=== PATIENT | male | born 1985 ===

== ENCOUNTER 2017-05-01 09:08 | Emergency (ER) | payer OTHER ==
[2017-05-01 09:17] VITALS: O2SAT 98
[2017-05-01] MEDS ORDERED: Apap-Butalbital-Caffeine 325-50-40mg Tab PO STA (09:23)
--- NOTE | 2017-05-01 09:25 | C.PDOC ---
History Of Present Illness 32 yo male, no prior hx, presents with haskins x 4 days. pts tates he took advil, with mild relief. pt denies fevers, cough, neck pain, blurry vision. haskins came on gradually. pt states he has haskins in past, and it usually resolves, however this one persisted. pt does not see any pmd. Time Seen by Provider: 05/01/17 09:17 Chief Complaint (Nursing): Headache Past Medical History Reviewed: Historical Data, Nursing Documentation, Vital Signs Vital Signs: Last Vital Signs Temp 98.0 F 05/01/17 11:00 Pulse 96 H 05/01/17 11:00 Resp 18 05/01/17 11:00 BP 148/74 05/01/17 11:00 Pulse Ox 98 05/01/17 11:04 Family History: States: Unknown Family Hx - Social History Hx Alcohol Use: Yes Hx Substance Use: No - Immunization History Hx Tetanus Toxoid Vaccination: No Hx Influenza Vaccination: No Hx Pneumococcal Vaccination: No Review Of Systems Except As Marked, All Systems Reviewed And Found Negative. Neurological: Positive for: Headache Physical Exam - Physical Exam Appears: Well, No Acute Distress, Other (ambulatory steady gait. ) Skin: Normal Color, Warm, Dry Eye(s): bilateral: Normal Inspection, PERRL, EOMI Nose: Normal Throat: Normal Neck: Normal Cardiovascular: Rhythm Regular Respiratory: Normal Breath Sounds Gastrointestinal/Abdominal: Normal Exam Back: Normal Inspection Extremity: Normal ROM Neurological/Psych: Oriented x3, Normal Speech, Normal Cognition, Normal Cranial Nerves, Normal Motor ED Course And Treatment - Laboratory Results Result Diagrams: 05/01/17 10:11 05/01/17 10:11 O2 Sat by Pulse Oximetry: 98 Medical Decision Making Medical Decision Making: well appearing male, no thunderclap features, neuro intact. will treat with fiorcet and reassess. 1007: pt reassesed states symptoms not improving. will order additional imaging labs iv meds and reassess 11:00. Patient reports feeling well and wants to be d/c now. On reassessment, patient is resting comfortably, and is in no acute distress. Patient was instructed to follow up with physician/clinic in 1-2 days for further evaluation. Disposition - Disposition Referrals: [facility] [Outside] [facility] [Outside] Cash Foster MD [Staff Provider] - Disposition: HOME/ ROUTINE Disposition Time: 11:00 Condition: STABLE Additional Instructions: please follow up with specialist. return to er with worsening symptoms or concerns. Prescriptions: Acetaminophen/Butalbital/Caf [Fioricet] 1 tab PO Q8 PRN #20 tab PRN Reason: Headache Instructions: Acute Headache (ED) Forms: [employer] (French) Print Language: SAMMARINESE - Clinical Impression Clinical Impression: Headache
[2017-05-01] MEDS ORDERED: Apap-Butalbital-Caffeine 325-50-40mg Tab ONE (09:34)
[2017-05-01] MEDS ORDERED: DiphenhydrAMINE 50 mg/ml Inj IVP STA (10:04)
[2017-05-01] MEDS ORDERED: DiphenhydrAMINE 50 mg/ml Inj ONE (10:13)
[2017-05-01 10:16] LABS: BASO # 0.1 K/uL (0.0-0.2); BASO % 0.7 % (0.0-2.0); EOS # 0.2 K/uL (0.0-0.7); EOS % 2.2 % (0.0-4.0); HEMATOCRIT 44.8 % (35.0-51.0); LYMPH % 23.8 % (20.0-40.0); MEAN CELL VOLUME 79.4 fL (80.0-94.0); MEAN CORPUSCULAR HEMOGLOBIN 27.8 pg (27.0-31.0); MEAN PLATELET VOLUME 7.6 fL (7.2-11.7); MONO # 0.4 K/uL (0.0-0.8); NRBC % 0.1 % (0.0-2.0); RED CELL DISTRIBUTION WIDTH 14.2 % (11.5-14.5); WHITE BLOOD COUNT 8.2 K/uL (4.8-10.8)
[2017-05-01 10:22] LABS: CHLORIDE 100 mmol/L (98-107); POTASSIUM 4.3 mmol/L (3.6-5.2); SODIUM 137 mmol/L (132-148)
[2017-05-01 10:24] LABS: GFR AFRICAN-AMERICAN > 60
[2017-05-01 10:25] LABS: ALB/GLOB RATIO 1.6 (1.0-2.1); ALKALINE PHOSPHATASE 114 U/L (38-126); ALT/SGPT 85 U/L (21-72); AST/SGOT 32 U/L (17-59); BILIRUBIN,TOTAL 1.1 mg/dL (0.2-1.3); BLOOD UREA NITROGEN 10 mg/dL (9-20); CALCIUM 8.9 mg/dl (8.6-10.4); CARBON DIOXIDE 23 mmol/L (22-30); GLUCOSE,RANDOM 111 mg/dL (75-110); TOTAL PROTEIN 8.1 g/dL (6.3-8.3)
--- NOTE | 2017-05-01 10:47 | CT ---
PROCEDURE: CT HEAD WITHOUT CONTRAST. HISTORY: Headache COMPARISON: None available. TECHNIQUE: Axial computed tomography images were obtained through the head/brain without intravenous contrast. Radiation dose: Total exam DLP = 987.79 MGy-cm. This CT exam was performed using one or more of the following dose reduction techniques: Automated exposure control, adjustment of the mA and/or kV according to patient size, and/or use of iterative reconstruction technique. FINDINGS: HEMORRHAGE: No intracranial hemorrhage. BRAIN: Moore-white matter differentiation is preserved. There is no mass, mass effect or abnormal extra-axial fluid collection. There is no territorial infarction. VENTRICLES: The ventricles are normal in size, shape and configuration. CALVARIUM: The skull base and calvarium are normal. PARANASAL SINUSES: There is mild mucosal thickening in the maxillary sinuses. The remaining included paranasal sinuses are predominantly clear. MASTOID AIR CELLS: Predominantly clear. OTHER FINDINGS: None. IMPRESSION: No acute intracranial abnormality.
[2017-05-01 11:04] VITALS: BP 148/74; PULSE 96; RESP 18; TEMP 98
== END 2017-05-01 11:06 | disposition home or self-care (01) ==
LOC: C.ER 09:08
DX: R51 Headache (principal)
CPT/HCPCS: 70450; 80053; 85025; 85610; 85730; 96374; 96375; 99284; J1200; J2765